=== PATIENT | male | born 1985 | race American Indian/Alaskan Native ===

== ENCOUNTER 2021-10-21 21:13 | Emergency (ER) | payer SELFPAY ==
[2021-10-21 22:22] VITALS: BP 116/60
== END 2021-10-21 22:24 | disposition left against medical advice (07) ==
LOC: ED 21:13
DX: S09.90XA Unspecified injury of head, initial encounter (principal); Z53.21 Procedure and treatment not carried out due to patient leaving prior to being seen by health care provider; X58.XXXA Exposure to other specified factors, initial encounter; Y93.89 Activity, other specified; Y92.89 Other specified places as the place of occurrence of the external cause; Y99.8 Other external cause status